=== PATIENT | male | born 1945 | race African-American/Black ===

== ENCOUNTER 2016-11-30 09:43 | Emergency (ER) | payer MEDICARE, BC ==
[~2016-11-30] VITALS: Ht 177.8 cm; Wt 102.0 kg
[~2016-11-30 09:43] MED LIST: ALBU6.7H INH; ASPI325T24 PO; CARV6.25 PO; OMPR20CCR PO; SIMV1TAB76 PO
[2016-11-30 09:44] VITALS: BP 161/79; PULSE 82; RESP 14; TEMP 98.2; O2SAT 99
--- NOTE | 2016-11-30 09:57 | PD ---
HPI Chief Complaint: Back/ Neck Pain or Injury Time Seen by Provider: 09:56 Travel History International Travel<30 days: No Contact w/Intl Traveler<30days: No Traveled to known affect area: No History of Present Illness HPI 71-year-old Afro[place] male presents the emergency department with history of long-standing lower back pain and recurrent sciatica. Patient states he is currently working on appointment with a local neurologist/neurosurgeon. He is on Lyrica 3 times daily. Patient states in the last 2-3 days she's had bilateral lower back pain with sciatica to the heels. He denies any specific injury. He is been taking Lortab that he said at home without much improvement. He states she's taken prednisone in the past with good results. He denies weakness or all or bladder changes. His pain currently is an 8 out of 10. Worse with ambulation or sitting to long. He has no known drug allergies. PFSH Past Medical History Blood Disorders: No Cancer: No Cardiac Catheterization: No Cardiovascular Problems: Yes High Cholesterol: Yes Diabetes: No Gastrointestinal Disorders: No GERD: Yes Hepatitis: No Hiatal Hernia: No Hypertension: Yes Sleep Apnea: No Thyroid Disease: No Past Surgical History Abdominal Surgery: Yes (LIVER CANCER TUMOR REMOVED, HERNIA REPAIR) Cardiac Surgery: No Cholecystectomy: Yes Ear Surgery: No Endocrine Surgery: No Eye Surgery: No Genitourinary Surgery: No Gynecologic Surgery: No Oral Surgery: No Thoracic Surgery: No Other Surgery: Yes (L HERNIA, L ROTATOR CUFF, R WRIST, LIVER RIDGE REMOVAL FOR CANCER) Social History Alcohol Use: No Tobacco Use: No Substance Use: No Allergies-Medications (Allergen,Severity, Reaction): Coded Allergies: No Known Allergies (Verified , 11/30/16) Reported Meds & Prescriptions Reported Meds & Active Scripts Active Proventil Hfa (Albuterol Sulfate) 6.7 Gm Aero 2 Puff INH Q4-6H PRN * SHAKE WELL BEFORE USE * Reported [unk bp med] DAILY Prilosec 20 Mg Cap (Omeprazole) 20 Mg Capcr 20 Mg PO DAILY Zocor (Simvastatin) 5 Mg Tab 10 Mg PO DAILY Ecotrin (Aspirin) 325 Mg Tabec 325 Mg PO DAILY HOLD FOR 5 DAYS PRIOR TO RECIEVING LIVER BIOPSY. PER DR. EDWARDS Review of Systems Except as stated in HPI: all other systems reviewed are Neg General / Constitutional: No: Fever Eyes: No: Visual changes HENT: No: Headaches Cardiovascular: No: Chest Pain or Discomfort Respiratory: No: Shortness of Breath Gastrointestinal: No: Abdominal Pain Genitourinary: No: Dysuria Musculoskeletal: Positive: Arthralgias, Limited ROM, Pain Skin: No Rash Neurologic: No: Weakness Psychiatric: No: Depression Endocrine: No: Polydipsia Hematologic/Lymphatic: No: Easy Bruising Physical Exam Narrative GENERAL: Patient appears in mild to moderate distress. SKIN: Warm and dry. Normal color. Normal turgor. No rash. HEAD: Atraumatic. Normocephalic. EYES: Pupils equal and round. No scleral icterus. No injection or drainage. ENT: No nasal bleeding or discharge. Mucous membranes pink and moist. Pharynx is clear. NECK: Trachea midline. Supple and nontender. CARDIOVASCULAR: Regular rate and rhythm. RESPIRATORY: No accessory muscle use. Clear to auscultation. Breath sounds equal bilaterally. GASTROINTESTINAL: Abdomen soft, non-tender, nondistended. Hepatic and splenic margins not palpable. MUSCULOSKELETAL: Extremities without clubbing, cyanosis, or edema. No obvious deformities. Patient has generalized tenderness with palpation of the lumbar region into the sciatic areas bilaterally. Patient has positive straight leg raise pain bilaterally at 40. Patient does not have weakness with plantar flexion or dorsiflexion bilaterally. He has limited flexion at the waist due to pain. NEUROLOGICAL: Awake and alert. No obvious cranial nerve deficits. Motor grossly within normal limits. Five out of 5 muscle strength in the arms and legs. Normal speech. PSYCHIATRIC: Appropriate mood and affect; insight and judgment normal. Data Data Last Documented VS Vital Signs Date Time Temp Pulse Resp B/P Pulse Ox O2 Delivery O2 Flow Rate FiO2 11/30/16 09:44 98.2 82 14 161/79 99 Orders Prednisone (Deltasone) (11/30/16 10:15) Ketorolac Inj (Toradol Inj) (11/30/16 10:15) Acetamin-Hydrocod 325-7.5 Mg (Barrett 7.5 (11/30/16 10:15) MDM Medical Decision Making Medical Screen Exam Complete: Yes Emergency Medical Condition: Yes Medical Record Reviewed: Yes Differential Diagnosis Acute on chronic low back pain. Lumbago. Sciatica. Spinal stenosis. Narrative Course Patient is uncomfortable but able to ambulate. Radiographic imaging is not felt warranted at this time based on the patient's history and physical. Patient is given his first dose of prednisone 60 mg by mouth as well as Toradol 30 mg IM. Patient is given Lortab 7.5/325 by mouth 1. Patient was discharged home on prednisone 20 mg twice a day 7 days. He is given Norflex 100 mg twice a day when necessary muscle spasms #10. Patient is given a refill of Lortab 7.5/325 one every 6 hours when necessary pain #12. Patient should continue his current medications otherwise. Patient follow-up with his primary care physician and/or neurosurgeon in the next week to ensure improvement. Patient should return the emergency Department with any weakness or worsening pain and lower extremities. Diagnosis Primary Impression: Acute exacerbation of chronic low back pain Additional Impression: Bilateral sciatica Referrals: Primary Care Physician Patient Instructions: General Instructions, Lumbar Spinal Stenosis (ED), Sciatica (ED) Additional Instructions: Radiographic imaging is not felt warranted at this time based on the patient's history and physical. Patient is given his first dose of prednisone 60 mg by mouth as well as Toradol 30 mg IM. Patient is given Lortab 7.5/325 by mouth 1. Patient was discharged home on prednisone 20 mg twice a day 7 days. He is given Norflex 100 mg twice a day when necessary muscle spasms #10. Patient is given a refill of Lortab 7.5/325 one every 6 hours when necessary pain #12. Patient should continue his current medications otherwise. Patient follow-up with his primary care physician and/or neurosurgeon in the next week to ensure improvement. Patient should return the emergency Department with any weakness or worsening pain and lower extremities. Med/Other Pt SpecificInfo: Prescription(s) given Disposition: DISCHARGE HOME Condition: Stable Matt Rojo Nov 30, 2016 09:57
[2016-11-30] MEDS ORDERED: [UNRECOGNIZED DRUG - REMARK] (10:00)
[2016-11-30] MEDS ORDERED: KETOROLAC TROMETHAMINE 60 MG/2 ML (IM) VIAL IM ONE (10:15)
[2016-11-30] MEDS ORDERED: ACETAMINOPHEN/HYDROcodone 325 MG/7.5 MG TAB PO ONE (10:15)
[2016-11-30] MEDS ORDERED: predniSONE 20 MG TAB PO SCH (10:15)
[2016-11-30] MEDS ORDERED: HYDR-3534 PO (10:26)
[2016-11-30] MEDS ORDERED: PRED20 PO (10:26)
[2016-11-30] MEDS ORDERED: ORPH100T99 PO (10:26)
== END 2016-11-30 11:07 | disposition home or self-care (01) ==
LOC: NEPD 09:43
DX: M54.42 Lumbago with sciatica, left side (principal); M54.41 Lumbago with sciatica, right side; G89.29 Other chronic pain; Z79.82 Long term (current) use of aspirin; E78.00 Pure hypercholesterolemia, unspecified; I10 Essential (primary) hypertension; K21.9 Gastro-esophageal reflux disease without esophagitis
CPT/HCPCS: 96372; 99284; J1885; J7512

== ENCOUNTER 2017-01-01 18:56 | Emergency (ER) | payer OTHER, MEDICARE, BC ==
[~2017-01-01] VITALS: Ht 177.8 cm; Wt 99.0 kg
[~2017-01-01 18:56] MED LIST changes: -CARV6.25 PO; +HYDR-3534 PO; +ORPH100T99 PO; +PRED20 PO; +[UNRECOGNIZED DRUG - REMARK]
[2017-01-01 18:58] VITALS: BP 150/76; PULSE 76; RESP 19; TEMP 98.8; O2SAT 97
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
[2017-01-01] MEDS ORDERED: KETOROLAC TROMETHAMINE 60 MG/2 ML (IM) VIAL IM ONE (21:30)
[2017-01-01] MEDS ORDERED: ORPHENADRINE INJ 60 MG/2 ML AMP IM ONE (21:30)
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
[2017-01-01] MEDS ORDERED: ROBA500T PO (22:32)
== END 2017-01-01 22:42 | disposition home or self-care (01) ==
LOC: NEPD 18:56
DX: S16.1XXA Strain of muscle, fascia and tendon at neck level, initial encounter (principal); V49.40XA Driver injured in collision with unspecified motor vehicles in traffic accident, initial encounter; Y92.488 Other paved roadways as the place of occurrence of the external cause
CPT/HCPCS: 70450; 72125; 96372; 99285; J1885; J2360